=== PATIENT | male | born 1970 | race Caucasian/White ===

== ENCOUNTER 2022-03-07 09:56 | Day surgery (SDC) | payer OTHER ==
[~2022-03-07] VITALS: Ht 170.2 cm; Wt 69.0 kg
[~2022-03-07 09:56] MED LIST: FINA5 PO; ROSU10TA PO
--- NOTE | 2022-03-07 13:10 | NUR ---
03/07/22 1310 NIKI VELASCO IV CAME OUT WHEN PT BROUGHT INTO ROOM. DEONTE APPLIED BY RN. NERISSA
== END 2022-03-07 13:25 | disposition home or self-care (01) ==
LOC: ORSCSDS 09:56
PROVIDERS: Student in an Organized Health Care Education/Training Program
PROC: 0DBL8ZX Excision of Transverse Colon, Via Natural or Artificial Opening Endoscopic, Diagnostic (ICD-10-PCS; principal; 2022-03-07 11:00)
PROC: 0DBM8ZX Excision of Descending Colon, Via Natural or Artificial Opening Endoscopic, Diagnostic (ICD-10-PCS; principal; 2022-03-07 11:00)
DX: Z12.11 Encounter for screening for malignant neoplasm of colon (principal); D12.3 Benign neoplasm of transverse colon; D12.4 Benign neoplasm of descending colon; K64.8 Other hemorrhoids; F17.210 Nicotine dependence, cigarettes, uncomplicated; Z79.899 Other long term (current) drug therapy
CPT/HCPCS: 88305; C1889; J2704; J7120